=== PATIENT | female | born 1980 | race Caucasian/White ===

== ENCOUNTER 2017-08-09 09:57 | Emergency (ER) | payer BC, MEDICAID ==
[~2017-08-09] VITALS: Ht 167.6 cm; Wt 53.3 kg
[2017-08-09 10:03] VITALS: BP 125/84
[2017-08-09] MEDS ORDERED: HYDROcodone/APAP 5/325 TABLET ONE (11:42)
[2017-08-09] MEDS ORDERED: HYDROcodone/APAP 5/325 TABLET PO PRN (12:00)
== END 2017-08-09 13:36 | disposition home or self-care (01) ==
LOC: ED 13:30
DX: S16.1XXA Strain of muscle, fascia and tendon at neck level, initial encounter (principal); S40.012A Contusion of left shoulder, initial encounter; S09.8XXA Other specified injuries of head, initial encounter; M32.9 Systemic lupus erythematosus, unspecified; M35.00 Sjogren syndrome, unspecified; E05.00 Thyrotoxicosis with diffuse goiter without thyrotoxic crisis or storm; M79.7 Fibromyalgia; V49.49XA Driver injured in collision with other motor vehicles in traffic accident, initial encounter; Y93.89 Activity, other specified; Y92.89 Other specified places as the place of occurrence of the external cause; Y99.8 Other external cause status
CPT/HCPCS: 70450; 72125; 99284

== ENCOUNTER 2019-11-26 07:52 | Emergency (ER) | payer OTHER ==
[~2019-11-26] VITALS: Ht 165.1 cm; Wt 48.0 kg
[2019-11-26] MEDS ORDERED: SODIUM CHLORIDE 0.9% 1,000ML IVBOLUS ONE (08:30)
[2019-11-26] MEDS ORDERED: ONDANSETRON 2MG/ML, 2ML IVPush ONE (08:30)
[2019-11-26] MEDS ORDERED: ONDANSETRON 2MG/ML, 2ML ONE (08:30)
[2019-11-26] MEDS ORDERED: MORPHINE SULFATE 4 MG/ML, 1ML ONE (08:30)
[2019-11-26] MEDS ORDERED: SODIUM CHLORIDE FLUSH 10ML SYR IVF ONE (08:30)
[2019-11-26] MEDS ORDERED: MORPHINE SULFATE 4 MG/ML, 1ML IVPush PRN (08:30)
[2019-11-26 08:59] LABS: BASOPHILS # (AUTO) 0.04 x10^3/uL (0-0.1); BASOPHILS % (AUTO) 1 % (0-1); EOSINOPHILS # (AUTO) 0.01 x10^3/uL (0-0.4); EOSINOPHILS % (AUTO) 0 % (1-7); LYMPHOCYTES % (AUTO) 15 % (22-44); MD NO; MEAN CORPUSCULAR HEMOGLOBIN 33.7 pg (27.0-34.8); MEAN CORPUSCULAR HGB CONC 33.1 g/dL (32.4-35.8); MEAN CORPUSCULAR VOLUME 101.7 fL (80-100); MEAN PLATELET VOLUME 7.9 fL (7.4-10.4); MONOCYTES # (AUTO) 0.44 x10^3/uL (0.2-0.8); MONOCYTES % (AUTO) 8 % (2-9); NEUTROPHILS # (AUTO) 4.18 x10^3/uL (1.8-6.8); NEUTROPHILS % (AUTO) 76 % (42-75); PLATELET COUNT 264 x10^3/uL (130-400); RED BLOOD COUNT 3.93 x10^6/uL (3.82-5.3); RED CELL DISTRIBUTION WIDTH 14.8 % (9.6-15.2)
[2019-11-26 09:10] LABS: ALBUMIN 3.7 g/dL (3.4-5.0); ANION GAP 6 mmol/L (5-15); CALCIUM 8.8 mg/dL (8.5-10.1); CHLORIDE 111 mmol/L (98-107)
[2019-11-26 09:13] LABS: ALANINE AMINOTRANSFERASE 32 U/L (12-78); ALKALINE PHOSPHATASE 121 U/L (45-117); BILIRUBIN,TOTAL 0.6 mg/dL (0.2-1.0); CREATININE 0.76 mg/dL (0.55-1.02); TOTAL PROTEIN 7.3 g/dL (6.4-8.2)
--- NOTE | 2019-11-26 09:24 | NUR ---
BREAK RN::PT TO CT
[2019-11-26] MEDS ORDERED: OMNIPAQUE 350 MG/ML, 100ML BOTTLE ONE (09:39)
[2019-11-26 09:51] VITALS: BP 124/76
== END 2019-11-26 10:46 | disposition home or self-care (01) ==
LOC: ED 08:27
DX: S22.32XA Fracture of one rib, left side, initial encounter for closed fracture (principal); S30.1XXA Contusion of abdominal wall, initial encounter; G89.11 Acute pain due to trauma; R07.89 Other chest pain; K76.0 Fatty (change of) liver, not elsewhere classified; R00.0 Tachycardia, unspecified; R94.31 Abnormal electrocardiogram [ECG] [EKG]; M79.7 Fibromyalgia; M32.9 Systemic lupus erythematosus, unspecified; W06.XXXA Fall from bed, initial encounter; Y93.89 Activity, other specified; Y92.098 Other place in other non-institutional residence as the place of occurrence of the external cause; Y99.8 Other external cause status
CPT/HCPCS: 36415; 71260; 74177; 80053; 84443; 84703; 85025; 93005; 96374; 96375; 99285; J2270; J2405; J7030; Q9967

== ENCOUNTER 2019-12-02 13:55 | Emergency (ER) | payer OTHER ==
[~2019-12-02] VITALS: Ht 167.6 cm; Wt 47.8 kg
[2019-12-02] MEDS ORDERED: DIPHENHYDRAMINE 25 MG CAPSULE PO ONE (16:00)
[2019-12-02] MEDS ORDERED: DIPHENHYDRAMINE 25 MG CAPSULE ONE (17:38)
[2019-12-02] MEDS ORDERED: DIPHENHYDRAMINE 50 MG/ML, 1ML ONE (18:56)
[2019-12-02] MEDS ORDERED: FAMOTIDINE 20 MG TABLET ONE (18:56)
[2019-12-02] MEDS ORDERED: DIPHENHYDRAMINE 50 MG/ML, 1ML IM ONE (19:00)
[2019-12-02] MEDS ORDERED: hydrOXYzine 25 MG/ML IM ONE (19:00)
[2019-12-02] MEDS ORDERED: FAMOTIDINE 20 MG TABLET PO ONE (19:00)
[2019-12-02 19:01] VITALS: BP 101/61
== END 2019-12-02 19:11 | disposition home or self-care (01) ==
LOC: ED 18:21
DX: L23.3 Allergic contact dermatitis due to drugs in contact with skin (principal)
CPT/HCPCS: 96372; 99284; J1200; J7512; Q0163